=== PATIENT | male | born 2000 | race Caucasian/White ===

== ENCOUNTER → 2018-08-09 16:45 | Outpatient (CLI) | payer BC, SELFPAY ==
[2018-08-09 18:36] LABS: Hepatitis B Surface Antigen NEGATIVE s/c (NEGATIVE)
[2018-08-09 18:54] LABS: HIV 1 and 2 Antibody NEGATIVE (NEGATIVE); Hep C Virus Ab w/Reflex Quant NEGATIVE s/c (NEGATIVE)
[2018-08-10 09:54] LABS: Urine N gonorrhoeae NOT DETECTED
[2018-08-10 10:02] LABS: Urine Chlamydia NOT DETECTED
[2018-08-11 13:48] LABS: HSV 1 IgM Screen Negative (Negative); HSV 2 IgM Screen Negative (Negative)
[2018-08-11 14:07] LABS: RPR Screen Nonreactive (Nonreactive)
== END ==
PROVIDERS: PCP Student in an Organized Health Care Education/Training Program; Visit Provider Physician Assistant
DX: N48.9 Disorder of penis, unspecified (principal)
CPT/HCPCS: 36415; 86592; 86694; 86703; 86803; 87340; 87491; 87591

== ENCOUNTER → 2018-12-12 10:37 | Outpatient (CLI) | payer BC, SELFPAY ==
--- NOTE | 2018-12-12 10:38 | DI.RAD.S_ITS ---
PROCEDURE: XR CHEST 2V INDICATIONS: cough TECHNIQUE: 2 views of the chest were acquired. COMPARISON: [facility], , CHEST 2 VIEW, 12/10/2015, 15:25. FINDINGS: Surgical changes and devices: None. Lungs and pleura: Lungs are clear. No pleural effusions or pneumothorax. Mediastinum: Mediastinal contours are normal. Heart size is normal. Bones and chest wall: No suspicious bony abnormalities. Soft tissues appear unremarkable. IMPRESSION: No acute disease. No focal consolidation. Dictated by: Felipe Mccoy M.D. on 12/12/2018 at 10:49 Approved by: Felipe Mccoy M.D. on 12/12/2018 at 10:50
== END ==
PROVIDERS: PCP Nurse Practitioner Family; Visit Provider Physician Assistant
DX: R05 Cough (principal); J02.9 Acute pharyngitis, unspecified; R53.83 Other fatigue
CPT/HCPCS: 71046; 85025; 86318; 87070; 87077; 87147

== ENCOUNTER → 2018-12-12 11:37 | Outpatient (CLI) | payer BC, SELFPAY ==
[2018-12-12 11:58] LABS: Add Manual Diff / Slide Review NO; Basophils Absolute Auto 0 /uL (0-100); Basophils Percent Auto 0.3 % (0-2); Eosinophils Absolute Auto 0 /uL (0-450); Eosinophils Percent Auto 0.2 % (2-4); Hematocrit 42.7 % (41-53); Hemoglobin 14.4 g/dL (13.5-17.5); Lymphocytes Absolute Auto 1400 /uL (1100-4500); Lymphocytes Percent Auto 9.6 % (25-40); Mean Corpuscular HGB Conc 33.7 % (30-36); Mean Corpuscular Hemoglobin 30.7 PG (26-34); Mean Corpuscular Volume 91.2 fL (80-100); Monocytes Absolute Auto 1300 /uL (0-900); Monocytes Percent Auto 9.3 % (3-14); Neutrophils Absolute Auto 11600 /uL (1500-7000); Neutrophils Percent Auto 80.6 % (50-75); Platelet Count 282 X10^3/uL (150-400); Red Blood Cell Count 4.68 X10^6/uL (4.5-5.9); White Blood Cell Count 14.4 X10^3/uL (4.5-11.0)
[2018-12-12 12:06] LABS: Monotest Negative (Negative)
== END ==
PROVIDERS: PCP Nurse Practitioner Family; Visit Provider Physician Assistant
DX: J02.9 Acute pharyngitis, unspecified (principal); R53.83 Other fatigue
CPT/HCPCS: 85025; 86318; 87070

== ENCOUNTER 2019-09-22 15:23 | Emergency (ER) | payer BC, SELFPAY ==
[2019-09-22 15:42] VITALS: BP 137/74; PULSE 120; RESP 24; TEMP 38.3; O2SAT 98
[2019-09-22] MEDS: IBUPROFEN 400 MG TABLET 800 MG PO (15:54)
--- NOTE | 2019-09-22 16:02 | DI.RAD.S_ITS ---
PROCEDURE: XR CHEST 2V INDICATIONS: cough, fever, chest pain w/ cough TECHNIQUE: 2 views of the chest were acquired. COMPARISON: [facility], CR, XR CHEST 2V, 12/12/2018, 10:39. FINDINGS: Surgical changes and devices: None. Lungs and pleura: Lungs are clear. No pleural effusions or pneumothorax. Mediastinum: Mediastinal contours are normal. Heart size is normal. Bones and chest wall: No suspicious bony abnormalities. Soft tissues appear unremarkable. IMPRESSION: 1. No acute cardiopulmonary disease. Dictated by: Ike Higgins M.D. on 09/22/2019 at 15:20 Approved by: Ike Higgins M.D. on 09/22/2019 at 15:20
[2019-09-22 16:20] LABS: Influenza A - CEPHEID Flu A POSITIVE (NEGATIVE); Influenza B - CEPHEID Flu B NEGATIVE (NEGATIVE)
--- NOTE | 2019-09-22 16:23 | ED.URI ---
HPI - URI/Sore Throat <ERMELINDA Amaya - Last Filed: 09/22/19 20:34> General Chief Complaint: Fever Stated Complaint: Flu like symptoms x 3 days Time Seen by Provider: 09/22/19 15:59 Source: patient and family Mode of arrival: Ambulatory Limitations: no limitations History of Present Illness HPI Narrative: This is a 19-year-old male, nonsmoker, who presents to ED with onset of body aches, headaches, fever 2 days ago. Patient reports yesterday he had to take off from work due to his symptoms in addition to cough with not feeling well with low energy and short of breath and pleuritic chest pain. Patient works at local [employer]. Patient denies known exposure to illness or recent foreign travel. Patient is unsure of receiving flu immunization. Patient has been taking DayQuil at home for his symptoms. Patient denies history of chronic illnesses. Related Data Previous Rx's Medication Instructions Recorded oseltamivir [Tamiflu] 75 mg PO BID 5 Days #9 cap 09/22/19 Allergies Allergy/AdvReac Type Severity Reaction Status Date / Time No Known Drug Allergies Allergy Verified 09/22/19 15:47 Review of Systems <ERMELINDA Amaya - Last Filed: 09/22/19 20:34> Review of Systems Narrative: General: See HPI HEENT: Denies sinus pain, ear pain, sore throat, difficulty swallowing, dizziness. Respiratory: See HPI Cardiovascular: Denies chest pain, palpitations, orthopnea, edema. Gastrointestinal: Denies nausea, vomiting, abdominal pain, diarrhea, constipation, melena. : Denies dysuria, frequency, incontinence, hematuria, urinary retention. Musculoskeletal: Denies weakness, joint pain or bony pain, (+) generalized bodyaches. Skin: Denies rash, skin lesions, or other. Neurologic: Denies weakness, headache, numbness, change in speech, confusion, seizures, incoordination. Psychiatric: No concerning psychosocial issues. 12-point review of systems is negative except for those stated above. Patient History <ERMELINDA Amaya - Last Filed: 09/22/19 20:34> Medical History Skin rash (Acute) Social History Smoking Status: Never smoker second hand exposure: No alcohol intake: current (Any kind 3-4x/week) substance use type: marijuana (1g or less per day) Smoking Status: Never smoker alcohol intake frequency: 0-2 drinks per day Substance Use Type: marijuana Exam <ERMELINDA Amaya - Last Filed: 09/22/19 20:34> Narrative Exam Narrative: GEN: Alert, oriented x 3, well nourished, and in no acute distress. Head: Normal cephalic, atraumatic. No scalp or temporal tenderness, palpable mass or rash. EYES: Pupils are equal, round, and reactive to light and accommodation. Extraocular muscles are intact bilaterally. There is no subconjunctival hemorrhage, exudate and sclera non-icteric. ENT: Bilateral auditory canals and tympanic membranes clear. Hearing grossly intact. Nose without bleeding, purulent discharge or deviation. Facial sinuses nontender to palpate. Mucous membrane moist, no mucosal lesion. Throat without erythema, tonsillar hypertrophy or exudate. Uvula in midline, airway patent. Neck: Trachea in midline. No JVD, non-tender without lymphadenopathy. No masses or thyroid megaly. Supple, non-tender and no meningeal signs. CARDIAC: Normal regular rate and rhythm without murmurs, gallops, or rubs. No chest wall tenderness. No peripheral edema, cyanosis or pallor. Capillary refill is less than 2 seconds. RESPIRATORY: Lungs are clear to auscultate bilaterally. No cough, wheezes, rales, or rhonchi. No stridor, respiratory distress, increase work of breathing, or accessary muscle used. ABD: Abdomen soft, nontender and non-distended. No guarding or rebound tenderness to palpate. Bowel sounds are normal in all 4 quadrants. There is no palpable masses or organomegaly. EXT: Full painless ROM of all extremities with no loss of sensation, strength, effusion or edema. SKIN: Hot, dry, normal color for patient. No erythema, lesions or rash over visible areas. BACK: Nontender without deformity or crepitance. No flank tenderness. NEUROLOGICAL: Alert and oriented to place, time and person. Sensation and motor function intact bilaterally. No facial droops, dysphasia. PSYCHIATRIC: Good judgement and reason, without hallucinations, abnormal affect or abnormal behaviors during the examination. Patient is not suicidal. Initial Vital Signs Initial Vital Signs: Vital Signs Temperature 100.9 F H 09/22/19 15:42 Pulse Rate 120 H 09/22/19 15:42 Respiratory Rate 24 09/22/19 15:42 Blood Pressure 137/74 09/22/19 15:42 Pulse Oximetry 98 09/22/19 15:42 <Chris Hair DO - Last Filed: 09/23/19 06:59> Initial Vital Signs Initial Vital Signs: Vital Signs Temperature 100.9 F H 09/22/19 15:42 Pulse Rate 120 H 09/22/19 15:42 Respiratory Rate 24 09/22/19 15:42 Blood Pressure 137/74 09/22/19 15:42 Pulse Oximetry 98 09/22/19 15:42 Scores <ERMELINDA Amaya - Last Filed: 09/22/19 20:34> GCS [place] coma scale eye opening: Spontaneous [place] coma scale verbal response: Orientated [place] coma scale motor response: Obey commands [place] coma scale total score: 15 Course <ERMELINDA Amaya - Last Filed: 09/22/19 20:34> Orders Ordered: Discontinued Medications Acetaminophen (Tylenol) 650 mg PO NOW ONE Stop: 09/22/19 16:39 Last Admin: 09/22/19 16:45 Dose: 650 mg Documented by: SANTANA Ibuprofen (Advil) 800 mg PO NOW ONE Stop: 09/22/19 15:50 Last Admin: 09/22/19 15:54 Dose: 800 mg Documented by: SANTANA Oseltamivir Phosphate (Tamiflu) 75 mg PO NOW ONE Stop: 09/22/19 16:39 Last Admin: 09/22/19 16:45 Dose: 75 mg Documented by: SANTANA Vital Signs Vital signs: Vital Signs - 8 hr 09/22/19 15:42 09/22/19 16:52 Temperature 100.9 F H 99.4 F Pulse Rate 120 H 84 Respiratory Rate 24 16 Blood Pressure 137/74 Blood Pressure [Right Arm] 129/64 Pulse Oximetry 98 95 <Chris Hair DO - Last Filed: 09/23/19 06:59> Orders Ordered: Discontinued Medications Acetaminophen (Tylenol) 650 mg PO NOW ONE Stop: 09/22/19 16:39 Last Admin: 03/01/20 16:45 Dose: 650 mg Documented by: SANTANA Ibuprofen (Advil) 800 mg PO NOW ONE Stop: 09/22/19 15:50 Last Admin: 09/22/19 15:54 Dose: 800 mg Documented by: SANTANA Oseltamivir Phosphate (Tamiflu) 75 mg PO NOW ONE Stop: 09/22/19 16:39 Last Admin: 09/22/19 16:45 Dose: 75 mg Documented by: SANTANA Vital Signs Vital signs: Vital Signs - 8 hr 09/22/19 15:42 09/22/19 16:52 Temperature 100.9 F H 99.4 F Pulse Rate 120 H 84 Respiratory Rate 24 16 Blood Pressure 137/74 Blood Pressure [Right Arm] 129/64 Pulse Oximetry 98 95 MDM - URI/Sore Throat <ERMELINDA Amaya - Last Filed: 09/22/19 20:34> Differential Diagnosis Differential diagnosis: Likely upper respiratory infection, viral infection, influenza and other (Pneumonia) Medical Records Attestation: I reviewed the patient's medical records. Lab Data Attestation: I reviewed the patient's lab results. Labs: Lab Results 09/22/19 Range/Units 15:48 Influenza A (RT-PCR) Flu a positive H (NEGATIVE) Influenza B (RT-PCR) Flu b negative (NEGATIVE) Imaging Data Chest x-ray: Radiologist's Impression: [address] [address] XRay Report Signed Patient: Sung Gordon RMR#: [id number] : 2000Acct:[id number] Age/Sex: 19 / MDate of Service: 09/22/19 Loc: ED Accession Number: [id number] Procedure: XR chest 2V Ordering Provider: Kenyon Christie [facility] PROCEDURE: XR CHEST 2V INDICATIONS: cough, fever, chest pain w/ cough TECHNIQUE: 2 views of the chest were acquired. [facility] FINDINGS: Surgical changes and devices: None. Lungs and pleura: Lungs are clear. No pleural effusions or pneumothorax. Mediastinum: Mediastinal contours are normal. Heart size is normal. Bones and chest wall: No suspicious bony abnormalities. Soft tissues appear unremarkable. IMPRESSION: 1. No acute cardiopulmonary disease. Dictated by: Ike Higgins M.D. on 09/22/2019 at 15:20 Approved by: Ike Higgins M.D. on 09/22/2019 at 15:20 [facility] Narrative Medical decision making narrative: This is 19-year-old male without chronic illnesses presents to ED with fever, generalized body aches, upper respiratory illness symptoms for 2 days. Physical exam is unremarkable including throat, ear and lung. Flu swab test test was positive for A. Chest x-ray does not show acute findings. Patient is able to tolerate fluids well in ED. He was medicated with Motrin during triage. Patient elects to have antiviral medication treatment with the Tamiflu and 1st dose has been provided while in ED and discharged to home with prescription of remaining dose. Patient's vital signs were improved after Tylenol and Motrin and was able to hydrate orally without nausea or vomiting and vital signs has been improved. Return precautions were discussed with the patient and patient verbalized understanding. Work off note provided. <Chris Hair DO - Last Filed: 09/23/19 06:59> Lab Data Labs: Lab Results 09/22/19 Range/Units 15:48 Influenza A (RT-PCR) Flu a positive H (NEGATIVE) Influenza B (RT-PCR) Flu b negative (NEGATIVE) Discharge Plan Departure Patient Disposition: Home Clinical Impression: Influenza A Discharge Date/Time: 09/22/19 17:05 Instructions: DI for Influenza -- Adult, DI for Fever (Symptom) -- Adult Activity Restrictions/Additional Instructions: You have been diagnosed with [influenza a. You were medicated with Tamiflu while in ED and you need to take the rest of dose for next 5 days twice a day. You were also medicated with Tylenol and Motrin while in ED for body aches and fever. Chest x-ray was negative for acute findings. You knee supportive care for flu and please use good hand hygiene to prevent transmitting the illness to others. Please rest, increase oral hydration, and take medications for your symptoms.]. What to do: *Take your medications as directed. You can take [id number] Tylenol 650-1000 mg up to 4 times a day as needed for pain and fever. You can take total Tylenol/acetaminophen 4000 mg in 24 hour. Ibuprofen 600 mg 3 times a day as needed with food. Also can also add Mucinex decongestant or DM (for cough) for your symptoms. *Follow up with your primary care provider in 2-3 days, call for an appointment. Let them know you were seen in the ED and that we asked you to be seen in follow up. *Return to ED if you have any new, worsening, or concerning symptoms, such as [chest pain, breathing difficulty, unable to tolerate fluids, fever not managed with medications, or any acute concerns]. Prescriptions: New oseltamivir [Tamiflu] 75 mg capsule 75 mg PO BID 5 Days Qty: 9 RF: 0 Referrals: Renetta Santoyo ARNP [Primary Care Provider] - Stand Alone Forms: Work Release Note <Chris Hair DO - Last Filed: 09/23/19 06:59> Sign Out Provider Sign Out Attestation: Dr Hair Co-Sign Statement: I was available for consultation during this patient's emergency department visit. This chart is signed by myself for administrative purposes only. I did not have direct contact with this patient during this visit. They were seen independently by the APC.
[2019-09-22] MEDS: OSELTAMIVIR 75 MG CAPSULE PO (16:45)
[2019-09-22] MEDS: ACETAMINOPHEN 325 MG TABLET 650 MG PO (16:45)
[2019-09-22 16:52] VITALS: BP 129/64; PULSE 84; RESP 16; TEMP 37.4; O2SAT 95
== END 2019-09-22 17:05 | disposition home or self-care (01) ==
PROVIDERS: Emergency Medicine; Emergency Provider Nurse Practitioner Family; PCP Nurse Practitioner Family
DX: J10.1 Influenza due to other identified influenza virus with other respiratory manifestations (principal)
CPT/HCPCS: 71046; 87502; 99283

== ENCOUNTER → 2019-11-06 14:25 | Outpatient (CLI) | payer BC, SELFPAY | PROVIDERS: PCP Nurse Practitioner Family; Visit Provider Family Medicine | DX: J02.9 Acute pharyngitis, unspecified (principal) | CPT/HCPCS: 87070; 87077; 87147 ==

== ENCOUNTER → 2019-11-27 10:54 | Outpatient (CLI) | payer BC, SELFPAY ==
[2019-11-29 03:36] LABS: COVID19 Sendout Not Detected (Not Detected)
== END ==
PROVIDERS: PCP Nurse Practitioner Family; Visit Provider Family Medicine
DX: J02.9 Acute pharyngitis, unspecified (principal); R50.9 Fever, unspecified
CPT/HCPCS: 87070; 87077; 87147; 87635

== ENCOUNTER → 2020-02-03 14:58 | Outpatient (CLI) | payer BC, SELFPAY | PROVIDERS: PCP Nurse Practitioner Family; Visit Provider Family Medicine | DX: J02.9 Acute pharyngitis, unspecified (principal) | CPT/HCPCS: 87070 ==

== ENCOUNTER 2020-05-03 00:26 | Emergency (ER) | payer BC, SELFPAY ==
[2020-05-03 00:32] VITALS: BP 148/81; PULSE 111; RESP 18; TEMP 37; O2SAT 98; BMI 25.0
--- NOTE | 2020-05-03 00:49 | DI.RAD.S_ITS ---
PROCEDURE: XR CHEST 1V INDICATIONS: chills TECHNIQUE: One view of the chest was acquired. COMPARISON: [facility], CR, XR CHEST 2V, 09/22/2019, 15:59. FINDINGS: Surgical changes and devices: None. Lungs and pleura: Lungs are clear. No pleural effusions or pneumothorax. Mediastinum: Mediastinal contours appear normal. Heart size is normal. Bones and chest wall: No suspicious bony lesions. Overlying soft tissues appear unremarkable. IMPRESSION: 1. No acute cardiopulmonary disease. Dictated by: Ike Higgins M.D. on 05/03/2020 at 8:05 Approved by: Ike Higgins M.D. on 05/03/2020 at 8:06
[2020-05-03 01:01] VITALS: BP 127/72; PULSE 107; RESP 23; O2SAT 97
--- NOTE | 2020-05-03 01:07 | ED_ITS ---
HPI - Fever General Chief Complaint: Fever Stated Complaint: fever chills shaking Time Seen by Provider: 05/03/20 00:28 Source: patient and family Mode of arrival: Ambulatory Limitations: no limitations History of Present Illness HPI Narrative: 19-year-old gentleman with a history of multiple infections this year including recurrent pharyngitis and influenza A, feels that he never completely resolves the pharyngitis infections. Woke up today feeling general malaise and over the course of the day grew worse. After dinner he was having chills sore throat body aches and having difficulty falling to sleep. He took part of his Xanax and woke up 2 hours later feeling worse. He comes in this evening for further evaluation. He discusses an episode of meningitis that happened when he was 8 years old and he is concerned that he may develop this again. Today he complains of chills he is afebrile here in the emergency department, mild sore throat, mild cervical and adenopathy, headache, body aches, nausea w ithout vomiting, no urinary symptoms abdominal pain or flank pain, no diarrhea. No chest pain, cough or dyspnea. No wheezing. No focal skin complaints Related Data Previous Rx's Medication Instructions Recorded penicillin V potassium 250 mg 250 mg PO TID #45 tab 02/03/20 tablet amoxicillin 500 mg PO Q8H #21 cap 05/03/20 Allergies Allergy/AdvReac Type Severity Reaction Status Date / Time No Known Drug Allergies Allergy Verified 02/03/20 14:47 Review of Systems Review of Systems Narrative: Remainder of review of systems including constitutional, ENT, cardiovascular, respiratory, GI, , musculoskeletal, skin, neurologic and psychiatric systems reviewed and are unremarkable except as noted in HPI. Patient History Medical History Skin rash (Acute) Social History Smoking Status: Never smoker second hand exposure: No alcohol intake: current substance use type: marijuana Smoking Status: Never smoker alcohol intake frequency: 0-2 drinks per day Alcohol type: wine Substance Use Type: marijuana Exam Narrative Exam Narrative: General: Slightly pale and appears to feel unwell bed no acute distress. Able to give a complete and coherent history. Well-nourished well- developed HEENT: Moist mucous membranes, normal sclera with reactive pupils, normal tympanic membranes bilaterally, mild tonsillar erythema without significant exudate Neck: No JVD, supple, no significant cervical adenopathy appreciated, no nuchal rigidity Respiratory: Lungs are clear to auscultation, no wheezing no rales no rhonchi. Full and symmetrical air movement Cardiac: Regular rate and rhythm no murmurs no bruits Abdomen: Soft nontender good bowel tones, no flank pain Skin: Warm and dry, no rashes Neurologic: Grossly neurologically intact with no obvious asymmetries or abnormalities Extremities: No trauma, well perfused Psych: Cooperative, appropriate insight and affect Initial Vital Signs Initial Vital Signs: Vital Signs Temperature 98.6 F 05/03/20 00:32 Pulse Rate 111 H 05/03/20 00:32 Respiratory Rate 18 05/03/20 00:32 Blood Pressure 148/81 H 05/03/20 00:32 Pulse Oximetry 98 05/03/20 00:32 Course Orders Ordered: ED Orders 05/03/20 00:49 XR chest 1V Stat 05/03/20 00:57 Complete Blood Count AUTO DIFF Stat Comprehensive Metabolic Panel Stat Lipase Stat 05/03/20 01:19 COVID19 -ED/INPAT/OR/L&D Stat 05/03/20 01:20 Blood Culture Stat 05/03/20 01:30 Urinalysis and Microscopic Stat 05/03/20 02:17 Throat Culture Stat Discontinued Medications Ceftriaxone Sodium/Dextrose (Rocephin) 2 gm in 50 mls @ 100 mls/hr IV NOW ONE Stop: 05/03/20 01:56 Last Admin: 05/03/20 01:35 Dose: 100 mls/hr Documented by: DEIDRA Sodium Chloride (Normal Saline 0.9%) 1,000 mls @ 1,000 mls/hr IV BOLUS ONE Stop: 05/03/20 02:26 Last Admin: 05/03/20 01:37 Dose: 1,000 mls/hr Documented by: DEIDRA Ketorolac Tromethamine (Toradol) 15 mg IV NOW ONE Stop: 05/03/20 01:28 Last Admin: 05/03/20 01:35 Dose: 15 mg Documented by: DEIDRA Vital Signs Vital signs: Vital Signs - 8 hr 05/03/20 00:32 05/03/20 01:01 05/03/20 01:31 Temperature 98.6 F Pulse Rate 111 H 107 H 110 H Respiratory Rate 18 23 29 H Blood Pressure 148/81 H 127/72 127/72 Pulse Oximetry 98 97 95 MDM - Fever Medical Records Attestation: I reviewed the patient's medical records. Lab Data Attestation: I reviewed the patient's lab results. Result diagrams: 05/03/20 00:57 05/03/20 00:57 Labs: Lab Results 05/03/20 05/03/20 05/03/20 Range/Units 00:57 00:57 01:19 WBC 16.5 H (4.5-11.0) X10^3/uL RBC 4.57 (4.5-5.9) X10^6/uL Hgb 13.7 (13.5-17.5) g/dL Hct 40.1 L (41-53) % MCV 87.8 (80-100) fL MCH 30.0 (26-34) PG MCHC 34.1 (30-36) % RDW 12.9 (11.6-14.8) % Plt Count 326 (150-400) X10^3/uL Neut % (Auto) 78.2 H (50-75) % Lymph % (Auto) 11.9 L (25-40) % [place] % (Auto) 7.8 (3-14) % Eos % (Auto) 1.8 L (2-4) % Baso % (Auto) 0.3 (0-2) % Neut # (Auto) 85526 H (8154-1415) /uL Lymph # (Auto) 2000 (2664-2066) /uL [place] # (Auto) 1300 H (0-900) /uL Eos # (Auto) 300 (0-450) /uL Baso # (Auto) 0 (0-100) /uL Sodium 135 L (137-145) mmol/L Potassium 3.9 (3.4-5.1) mmol/L Chloride 102 (98-107) mmol/L Carbon Dioxide 24 (22-32) mmol/L BUN 11 (9-20) mg/dL Creatinine 0.67 (0.66-1.25) mg/dL Estimated GFR > 60.0 (>60) mL/min BUN/Creatinine Ratio 16.4 (6-22) Glucose 108 H (70-100) mg/dL Calcium 9.5 (8.4-10.2) mg/dL Total Bilirubin 0.5 (0.2-1.3) mg/dL AST 36 (17-59) IU/L ALT 26 (<50) IU/L Alkaline Phosphatase 67 (38-126) U/L Total Protein 7.5 (6.3-8.2) g/dL Albumin 4.4 (3.5-5.0) g/dL Globulin 3.1 (1.7-4.1) g/dL Albumin/Globulin Ratio 1.4 (1.0-2.8) Lipase 109 (23-300) U/L Urine Color Urine Appearance Urine pH (4.5-8.0) Ur Specific [place] (1.000-1.035) Urine Protein (Negative) Urine Glucose (UA) (Negative) g/dL Urine Ketones (NEGATIVE) Urine Occult Blood (Negative) Urine Nitrate (Negative) Urine Bilirubin (NEGATIVE) Urine Urobilinogen (0.2) E.U./dL Ur Leukocyte Esterase (NEGATIVE) Urine RBC (0-5/HPF) Urine WBC (0-5/HPF) Urine Bacteria (None) Ur Culture Indicated? COVID-19 PCR Negative (Negative) 05/03/20 Range/Units 01:30 WBC (4.5-11.0) X10^3/uL RBC (4.5-5.9) X10^6/uL Hgb (13.5-17.5) g/dL Hct (41-53) % MCV (80-100) fL MCH (26-34) PG MCHC (30-36) % RDW (11.6-14.8) % Plt Count (150-400) X10^3/uL Neut % (Auto) (50-75) % Lymph % (Auto) (25-40) % [place] % (Auto) (3-14) % Eos % (Auto) (2-4) % Baso % (Auto) (0-2) % Neut # (Auto) (7069-7887) /uL Lymph # (Auto) (1410-2393) /uL [place] # (Auto) (0-900) /uL Eos # (Auto) (0-450) /uL Baso # (Auto) (0-100) /uL Sodium (137-145) mmol/L Potassium (3.4-5.1) mmol/L Chloride (98-107) mmol/L Carbon Dioxide (22-32) mmol/L BUN (9-20) mg/dL Creatinine (0.66-1.25) mg/dL Estimated GFR (>60) mL/min BUN/Creatinine Ratio (6-22) Glucose (70-100) mg/dL Calcium (8.4-10.2) mg/dL Total Bilirubin (0.2-1.3) mg/dL AST (17-59) IU/L ALT (<50) IU/L Alkaline Phosphatase (38-126) U/L Total Protein (6.3-8.2) g/dL Albumin (3.5-5.0) g/dL Globulin (1.7-4.1) g/dL Albumin/Globulin Ratio (1.0-2.8) Lipase (23-300) U/L Urine Color Yellow Urine Appearance Clear Urine pH 7.5 (4.5-8.0) Ur Specific [place] 1.015 (1.000-1.035) Urine Protein Negative (Negative) Urine Glucose (UA) Negative (Negative) g/dL Urine Ketones Negative (NEGATIVE) Urine Occult Blood Negative (Negative) Urine Nitrate Negative (Negative) Urine Bilirubin Negative (NEGATIVE) Urine Urobilinogen 0.2 (0.2) E.U./dL Ur Leukocyte Esterase Negative (NEGATIVE) Urine RBC None seen (0-5/HPF) Urine WBC None seen (0-5/HPF) Urine Bacteria None seen (None) Ur Culture Indicated? Cult not indicated COVID-19 PCR (Negative) Point of Care Testing Rapid Strep A Negative ABG Data Attestation: I personally reviewed and interpreted this ABG as follows: Imaging Data Chest x-ray: Attestation: I personally reviewed and interpreted this imaging study as follows: My Impression: Normal chest x-ray, no evidence of infiltrate, pneumothorax. Normal mediastinum and normal cardiac silhouette. ECG Data Attestation: I personally reviewed and interpreted this ECG as follows: MDM Narrative Medical decision making narrative: 19-year-old gentleman with recurrent pharyngitis over the course of this year presents with increasing chills body aches sore throat all developing over the course of today mildly erythematous throat with no other localizing infectious Disease signs. He has no rash and no evidence of pneumonia. White count is slightly elevated with left shift. He is [place] id negative and rapid strep is also negative. Remainder of labs are reassuring. No evidence of a UTI. At this point, most likely diagnosis is still bacterial pharyngitis with the elevated white count and presenting complaints. He does have a follow-up appointment with ENT regarding recurrent pharyngitis scheduled for next week. He was given 2 g of IV ceftriaxone will have him complete an additional 7 days of amoxicillin. When over signs and symptoms of worsening disease as well as sepsis and encouraged him to return should he feel that he is worsening. He is safe for home discharge Discharge Plan Departure Patient Disposition: Home Clinical Impression: Pharyngitis Qualifiers: Pharyngitis/tonsillitis etiology: unspecified etiology Qualified Code(s): J02.9 - Acute pharyngitis, unspecified Instructions: DI for Pharyngitis/Tonsillopharyngitis -- Adult Activity Restrictions/Additional Instructions: Thank you for coming in today Your workup was actually very reassuring. There is no evidence of pneumonia, sepsis, meningitis, urinary tract infection. Your rapid strep test was negative but a throat culture has been done. Given your presenting complaints and elevated white blood cell count I do believe you have a bacterial infection. You were given IV ceftriaxone in the emergency department and I am going to ask you to complete a 7 day course of amoxicillin. The course of amoxicillin has been electronically transmitted to [facility] for you to picker and sorter load and unload and begin tomorrow. Please do follow-up with the ENT doctor as scheduled next week. Please ask them to look up the throat culture that was done here in the emergency department to see if more information is available. If you feel like you are getting worse, please feel free to return to the ER for further evaluation. Prescriptions: New amoxicillin 500 mg capsule 500 mg PO Q8H Qty: 21 RF: 0 No Action penicillin V potassium 250 mg tablet 250 mg PO TID Qty: 45 RF: 0 Referrals: Renetta Santoyo ARNP [Primary Care Provider] -
[2020-05-03 01:10] LABS: Add Manual Diff / Slide Review NO; Basophils Absolute Auto 0 /uL (0-100); Basophils Percent Auto 0.3 % (0-2); Eosinophils Absolute Auto 300 /uL (0-450); Eosinophils Percent Auto 1.8 % (2-4); Hematocrit 40.1 % (41-53); Hemoglobin 13.7 g/dL (13.5-17.5); Lymphocytes Absolute Auto 2000 /uL (1100-4500); Lymphocytes Percent Auto 11.9 % (25-40); Mean Corpuscular HGB Conc 34.1 % (30-36); Mean Corpuscular Volume 87.8 fL (80-100); Monocytes Absolute Auto 1300 /uL (0-900); Monocytes Percent Auto 7.8 % (3-14); Neutrophils Absolute Auto 12900 /uL (1500-7000); Neutrophils Percent Auto 78.2 % (50-75); Platelet Count 326 X10^3/uL (150-400); Red Blood Cell Count 4.57 X10^6/uL (4.5-5.9); Red Cell Distribution Width 12.9 % (11.6-14.8); White Blood Cell Count 16.5 X10^3/uL (4.5-11.0)
[2020-05-03 01:15] LABS: Alanine Aminotransferase 26 IU/L (<50); Albumin 4.4 g/dL (3.5-5.0); Albumin Globulin Ratio 1.4 (1.0-2.8); Alkaline Phosphatase 67 U/L (38-126); Aspartate Aminotransferase 36 IU/L (17-59); BUN Creatinine Ratio 16.4 (6-22); Bilirubin Total 0.5 mg/dL (0.2-1.3); Blood Urea Nitrogen 11 mg/dL (9-20); Calcium 9.5 mg/dL (8.4-10.2); Carbon Dioxide 24 mmol/L (22-32); Chloride 102 mmol/L (98-107); Estimated Glomerular Filt Rate > 60.0 mL/min (>60); Globulin 3.1 g/dL (1.7-4.1); Glucose 108 mg/dL (70-100); HEMOLYSIS < 15 (0-50); Lipase 109 U/L (23-300); Potassium 3.9 mmol/L (3.4-5.1); Sodium 135 mmol/L (137-145); Total Protein 7.5 g/dL (6.3-8.2)
[2020-05-03 01:31] VITALS: BP 127/72; PULSE 110; RESP 29; O2SAT 95
[2020-05-03 01:33] LABS: Bacteria Urine None Seen; RBC Urine None Seen (0-5/HPF); WBC Urine None Seen (0-5/HPF)
[2020-05-03 01:34] LABS: Appearance Urine UA CLEAR; Bilirubin Urine UA NEGATIVE (NEGATIVE); Color Urine UA YELLOW; Glucose Urine UA NEGATIVE (Negative); Ketones Urine UA NEGATIVE (NEGATIVE); Leukocyte Esterase Urine UA NEGATIVE (NEGATIVE); Nitrite Urine UA NEGATIVE (Negative); Occult Blood Urine UA NEGATIVE (Negative); Protein Urine UA NEGATIVE (Negative); Specific Gravity Urine UA 1.015 (1.000-1.035); Urobilinogen Urine UA 0.2 E.U./dL (0.2); pH Urine UA 7.5 (4.5-8.0)
[2020-05-03] MEDS: KETOROLAC 60 MG/2 ML VIAL 15 MG IV (01:35)
[2020-05-03] MEDS: CEFTRIAXONE 2 GM/50 ML FROZ.PIGGY IV (01:35)
[2020-05-03] MEDS: SODIUM CHLORIDE 0.9% 1,000 ML 1000 ML IV (01:37)
[2020-05-03 01:40] LABS: COVID19 -Nasal RAPID Negative (Negative)
[2020-05-03 01:45] LABS: Culture Indicated Urine Cult Not Indicated
[2020-05-03 02:36] VITALS: BP 123/71; PULSE 87; RESP 16; O2SAT 96
== END 2020-05-03 03:00 | disposition home or self-care (01) ==
PROVIDERS: Emergency Provider Emergency Medicine; PCP Nurse Practitioner Family
DX: J02.9 Acute pharyngitis, unspecified (principal); R50.9 Fever, unspecified; D72.829 Elevated white blood cell count, unspecified
CPT/HCPCS: 36415; 71045; 80053; 81001; 83690; 85025; 87040; 87070; 87635; 87880; 96365; 96375; 99284; J0696; J1885

== ENCOUNTER → 2020-05-14 13:06 | Outpatient (CLI) | payer BC, SELFPAY ==
--- NOTE | 2020-05-14 | DI.CT.S_ITS ---
PROCEDURE: CT SINUS SCREEN WO CON INDICATIONS: Other disturbances of smell and taste TECHNIQUE: Noncontrast 3.0 mm axial images acquired from the frontal sinuses to the mid-sella, with coronal and sagittal reformats. For radiation dose reduction, the following was used: automated exposure control, adjustment of mA and/or kV according to patient size. COMPARISON: None. FINDINGS: Image quality: Excellent. Maxillary Sinuses: No bony remodeling or destruction. Sinuses are clear. Ethmoid Air Cells: Mild anterior ethmoid air cell mucosal thickening without bony remodeling or destruction. Sphenoid Sinuses: Mild left sphenoid sinus mucosal thickening with obstruction of the left sphenoid ethmoid recess. The right sphenoid sinus is clear. No bony remodeling or destruction Frontal Sinuses: Clear frontal sinuses with no bony remodeling or destruction. Ostiomeatal Complexes: Ostiomeatal complexes are patent. No Betzy cells. Miscellaneous: Visualized intra-orbital contents are normal. Right-sided trista bullosa without mucosal thickening. No paradoxical turbinate curvature. S-shaped nasal septal deviation with moderate rightward deviation and spurring at the level of the inferior nasal turbinates. IMPRESSION: Mild scattered paranasal sinus inflammatory changes with no a fluid level to indicate acute sinusitis. No osseous remodeling to indicate chronic sinusitis. Right trista bullosa. S-shaped nasal septal deviation with moderate rightward deviation and spurring at the level of the inferior nasal turbinate. Dictated by: Charlie Schreiber M.D. on 05/14/2020 at 13:23 Approved by: Charlie Schreiber M.D. on 05/14/2020 at 13:26
[2020-05-14 15:26] LABS: HIV 1 & 2 Ab/Ag 4th Gen Combo NEGATIVE (NEGATIVE)
[2020-05-14 15:36] LABS: Urine N gonorrhoeae NOT DETECTED
[2020-05-14 15:38] LABS: Urine Chlamydia NOT DETECTED
[2020-05-15 06:13] LABS: RPR Screen Non Reactive (Non Reactive)
== END ==
PROVIDERS: PCP Student in an Organized Health Care Education/Training Program; Referring Provider Student in an Organized Health Care Education/Training Program; Visit Provider Otolaryngology
DX: R43.8 Other disturbances of smell and taste (principal); J34.3 Hypertrophy of nasal turbinates; Z11.3 Encounter for screening for infections with a predominantly sexual mode of transmission
CPT/HCPCS: 36415; 70486; 86592; 87389; 87491; 87591

== ENCOUNTER → 2020-06-26 12:59 | Outpatient (CLI) | payer BC, SELFPAY ==
[2020-06-26 13:22] LABS: Influenza A - CEPHEID Flu A NEGATIVE (NEGATIVE); Influenza B - CEPHEID Flu B NEGATIVE (NEGATIVE)
[2020-06-26 13:59] LABS: COVID19 -Nasal RAPID Negative (Negative)
== END ==
PROVIDERS: PCP Student in an Organized Health Care Education/Training Program; Visit Provider Physician Assistant
DX: Z11.59 Encounter for screening for other viral diseases (principal); R68.89 Other general symptoms and signs
CPT/HCPCS: 87502; 87635

== ENCOUNTER → 2020-07-13 15:43 | Outpatient (CLI) | payer BC, SELFPAY ==
[2020-07-13 16:18] LABS: COVID19 -Nasal RAPID Negative (Negative)
== END ==
PROVIDERS: PCP Student in an Organized Health Care Education/Training Program; Visit Provider Nurse Practitioner
DX: J02.9 Acute pharyngitis, unspecified (principal); R06.02 Shortness of breath; Z20.828 Contact with and (suspected) exposure to other viral communicable diseases
CPT/HCPCS: 87635